=== PATIENT | female | born 1950 | race Caucasian/White ===

== ENCOUNTER 2018-08-09 17:42 | Observation (INO) ==
[2018-08-09] MEDS ORDERED: Ipratropium/Albuterol Neb 3 ML IH ONE (18:20)
--- NOTE | 2018-08-09 18:21 | Emergency Department Note ---
Disposition Clinical Impression: Pulmonary nodules/lesions, multiple, Pneumonitis, COPD exacerbation Disposition: Admitted As Inpatient Condition: Good Forms: ED Satisfaction Letter General Adult HPI - General Chief complaint: ED Upper Respiratory Infection Stated complaint: SOB Time Seen by Provider: 08/09/18 18:08 Source: patient Limitations: no limitations Nursing Notes Reviewed: Yes Vital Signs Reviewed: Yes - History of Present Illness HPI Narrative: Patient presented to the emergency room for evaluation of shortness of breath. Patient with a history of asthma but no official history of COPD the long-term smoking history. Symptoms started approximately 2 weeks ago. Patient was initially diagnosed with influenza. Was reportedly out of the time frame and started on an unknown antibiotic. Patient had mild initial improvement but has worsening cough with shortness of breath. White productive sputum. Patient states overall she has been feeling too bad to go outside and smoke. Pain Scale: 10 - Related Data Home Medications Medication Instructions Recorded Confirmed Albuterol Sulfate [Albuterol 2 puff IH Q4HR PRN 08/09/18 08/09/18 Inhaler] Doxycycline 100 mg PO BID 08/09/18 08/09/18 FLUoxetine HCl [Fluoxetine HCl] 40 mg PO QAM 08/09/18 08/09/18 Gabapentin [Neurontin] 400 mg PO 5XD PRN 08/09/18 08/09/18 Lansoprazole [Prevacid] 15 mg PO QAM 08/09/18 08/09/18 Naproxen [EC-Naprosyn] 500 mg PO BID 08/09/18 08/09/18 OxyCODONE/APAP 10/325 [Percocet 1 each PO Q6HR PRN 08/09/18 08/09/18 10/325 MG] Tizanidine HCl 2 mg PO Q8H PRN 08/09/18 08/09/18 hydroCHLOROthiazide 25 mg PO DAILY 08/09/18 08/09/18 [Hydrochlorothiazide] Allergies Allergy/AdvReac Type Severity Reaction Status Date / Time No Known Allergies Allergy Verified 11/17/17 19:01 Review of Systems: CONSTITUTIONAL: Subjective fever, chills, weakness and fatigue HEENT: Eyes: No visual changes. Ears, Nose, Throat: No hearing loss, difficulty talking or unable to swallow. SKIN: No rash or itching. CARDIOVASCULAR: No chest pain, chest pressure or chest discomfort. No palpitatio ns or edema. RESPIRATORY: Shortness of breath with cough and sputum production GASTROINTESTINAL: No anorexia, nausea, vomiting or diarrhea. No abdominal pain or blood. GENITOURINARY: No burning on urination or hematuria. NEUROLOGICAL: No headache, dizziness, syncope, paralysis, ataxia, numbness or tingling in the extremities. No change in bowel or bladder control. MUSCULOSKELETAL: No muscle pain, back pain, joint pain or stiffness. Past Medical History - Past Medical History Medical history: Reports: other Psychiatric history: Reports: no psych history - Social History Smoking Status: Current every day smoker Smokeless Tobacco Status: No Alcohol use: Reports: none Drug use: Reports: none Physical Exam General:, nontoxic, in mild respiratory distress Head: Normocephalic Atraumatic Eyes: PERRL, EOMI ENT: Airway patent, no stridor Neck: supple, no meningismus Chest: Diffuse wheezing bilaterally Cardiac: Regular rate and rhythm, no murmurs, rubs or gallops Abdomen: soft, nontender, nondistended; no guarding, rebound, or tenderness to percussion Musculoskeletal: Calves symmetric, nontender. Skin: No rash, normal skin tone. Neuro: Alert and Oriented to person, place, and time; No obvious focal deficit. 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 Patient is artery been on steroids and antibiotics and using inhaler at home. Patient will likely require admission. - Reevaluation(s) Reevaluation #1: Patient improved breathing treatments. Patient with numerous pulmonary nodules greatest 5 mm. Patient will need follow-up with repeat CT scan per guidelines Vital Signs Temperature 99.0 F 08/09/18 17:51 Pulse Rate 97 08/09/18 17:51 Respiratory Rate 20 08/09/18 17:51 Blood Pressure 134/79 08/09/18 17:51 O2 Sat by Pulse Oximetry 90 08/09/18 17:51 Temperature 99.0 F 08/09/18 17:51 Pulse Rate 94 08/09/18 18:41 Respiratory Rate 16 08/09/18 18:41 Blood Pressure 155/100 08/09/18 18:41 O2 Sat by Pulse Oximetry 97 08/09/18 18:41 Oxygen Delivery Oxygen Delivery Nasal Cannula,Aerosol Mask Medical Decision Making - Medical Records Medical records reviewed: Yes I reviewed the patient's medical records. - Lab Data Lab results reviewed: Yes I reviewed the patient's lab results. Result diagrams: 08/09/18 18:25 08/09/18 18:25 Lab Results 08/09/18 08/09/18 08/09/18 Range/Units 18:25 18:25 18:25 WBC 4.2 L (4.3-11.1) K/mcL RBC 4.62 (3.82-4.97) M/mcL Hgb 13.7 (11.5-15.4) g/dL Hct 41.0 (35.3-44.9) % MCV 88.7 (83.0-100.0) fL MCH 29.7 (28.0-33.3) pg MCHC 33.4 (31.6-35.5) g/dL RDW 13.8 (11.5-14.5) % Plt Count 108 L (140-400) K/mcL MPV 13.9 H (9.4-12.4) fL Immature Gran % 0.2 (0-4) % Seg Neutrophils % 70.3 % Lymphocytes % 16.1 % Monocytes % 13.2 % Eosinophils % 0.0 % Basophils % 0.2 % Neutrophils # 2.9 (1.6-8.9) K/mcL Lymphocytes # 0.7 (0.6-4.6) K/mcL Monocytes # 0.6 (0.0-1.3) K/mcL Eosinophils # 0.0 (0.0-0.6) K/mcL Basophils # 0.0 (0.0-0.2) K/mcL D-Dimer (0-500) ng/mLFEU Sodium 137 (136-145) mEq/L Potassium 3.4 L (3.5-5.1) mEq/L Chloride 98 (98-107) mEq/L Carbon Dioxide 30 H (23-29) mEq/L BUN 16 (8-23) mg/dL Creatinine 0.67 (0.60-1.20) mg/dL Est GFR ( Amer) > 60 (> 60) Est GFR (Non-Af Amer) > 60 (> 60) BUN/Creatinine Ratio 24 (6-26) Glucose 118 H (70-105) mg/dL Calculated Osmolality 286 (280-300) Lactic Acid 0.7 (0.5-2.2) mmol/L Calcium 8.6 (8.6-10.3) mg/dL Troponin I < 0.03 (< 0.04) ng/mL B-Natriuretic Peptide (Less than 100) pg/mL 08/09/18 08/09/18 Range/Units 18:25 18:25 WBC (4.3-11.1) K/mcL RBC (3.82-4.97) M/mcL Hgb (11.5-15.4) g/dL Hct (35.3-44.9) % MCV (83.0-100.0) fL MCH (28.0-33.3) pg MCHC (31.6-35.5) g/dL RDW (11.5-14.5) % Plt Count (140-400) K/mcL MPV (9.4-12.4) fL Immature Gran % (0-4) % Seg Neutrophils % % Lymphocytes % % Monocytes % % Eosinophils % % Basophils % % Neutrophils # (1.6-8.9) K/mcL Lymphocytes # (0.6-4.6) K/mcL Monocytes # (0.0-1.3) K/mcL Eosinophils # (0.0-0.6) K/mcL Basophils # (0.0-0.2) K/mcL D-Dimer 564 H (0-500) ng/mLFEU Sodium (136-145) mEq/L Potassium (3.5-5.1) mEq/L Chloride (98-107) mEq/L Carbon Dioxide (23-29) mEq/L BUN (8-23) mg/dL Creatinine (0.60-1.20) mg/dL Est GFR ( Amer) (> 60) Est GFR (Non-Af Amer) (> 60) BUN/Creatinine Ratio (6-26) Glucose (70-105) mg/dL Calculated Osmolality (280-300) Lactic Acid (0.5-2.2) mmol/L Calcium (8.6-10.3) mg/dL Troponin I (< 0.04) ng/mL B-Natriuretic Peptide 19 (Less than 100) pg/mL - Radiology Data Radiology results reviewed: Yes I reviewed the patient's radiology results. Chest X-Ray 08/09/18 18:11 IMPRESSION: No acute abnormality detected. D/ / Kamari Marti MD / Kamari Marti MD Interpreting Provider: Kamari Marti MD Chest CTA 08/09/18 19:21 IMPRESSION: No findings diagnostic of pulmonary embolus. Numerous small pulmonary nodules as described. The largest measures 5 mm in the right upper lobe with a small focus of central low density. This could be artifact or an area of developing cavitation or necrosis. Follow-up recommended. Multifocal ground-glass attenuation, age-indeterminate. This is likely due to sequela of underlying small airway disease include bronchiolitis or pneumonitis. Early changes of fibrosis not excluded. RECOMMENDATIONS: Fleischner Society guidelines for follow-up and management of incidentally detected pulmonary nodules: Multiple Solid Nodules: Nodule size less than 6 mm In a low-risk patient, no routine follow-up. In a high-risk patient, optional CT at 12 months. Nodule size equals 6-8 mm In a low-risk patient, CT at 3-6 months, then consider CT at 18-24 months. In a high-risk patient, CT at 3-6 months, then CT at 18-24 months. Nodule size greater than 8 mm In a low-risk patient, CT at 3-6 months, then consider CT at 18-24 months. In a high-risk patient, CT at 3-6 months, then CT at 18-24 months. - Low risk patients include individuals with minimal or absent history of smoking and other known risk factors. - High risk patients include individuals with a history or smoking or known risk factors. Radiology 2017 http://pubs.rsna.org/doi/full/10.1148/[email or web address] D/ / Sekou Mathew / Sekou Mathew Interpreting Provider: eSkou Mathew
[2018-08-09] MEDS ORDERED: methylPREDNISolone 125 MG/2 ML VIAL IVP ONE (18:31)
[2018-08-09 18:39] LABS: Basophils % 0.2 %; Hemoglobin 13.7 g/dL (11.5-15.4); Immature Granulocytes % 0.2 % (0-4); Lymphocytes # 0.7 K/mcL (0.6-4.6); Lymphocytes % 16.1 %; Mean Corpuscular HGB Conc 33.4 g/dL (31.6-35.5); Mean Corpuscular Hemoglobin 29.7 pg (28.0-33.3); Mean Corpuscular Volume 88.7 fL (83.0-100.0); Mean Platelet Volume 13.9 fL (9.4-12.4); Monocytes # 0.6 K/mcL (0.0-1.3); Monocytes % 13.2 %; Neutrophils # 2.9 K/mcL (1.6-8.9); Platelet Count 108 K/mcL (140-400); Red Blood Count 4.62 M/mcL (3.82-4.97); Red Cell Distribution Width 13.8 % (11.5-14.5); Segmented Neutrophils % 70.3 %
[2018-08-09 18:59] LABS: BUN/Creatinine Ratio 24 (6-26); Blood Urea Nitrogen 16 mg/dL (8-23); Calcium 8.6 mg/dL (8.6-10.3); Carbon Dioxide 30 mEq/L (23-29); Chloride 98 mEq/L (98-107); Glucose 118 mg/dL (70-105); Osmolality,Calculated 286 (280-300); Potassium 3.4 mEq/L (3.5-5.1); Sodium 137 mEq/L (136-145); Troponin I < 0.03 ng/mL (< 0.04); eGFR For Non-African Americans > 60 (> 60)
[2018-08-09] MEDS ORDERED: Isovue-370 500 ML BOTTLE IVP ONE (19:21)
[2018-08-09] MEDS ORDERED: Azithromycin 500 MG in D5% in Water 250 ML IVPB ONE (20:36)
[2018-08-09] MEDS ORDERED: cefTRIAXone 1,000 MG in Water for inj. (sterile) 20 ML 10 ML IVP ONE (20:36)
[2018-08-09] MEDS ORDERED: Naloxone 0.4 MG/ML INJ IVP PRN (21:08)
[2018-08-09] MEDS ORDERED: Albuterol 2.5 MG/3 ML NEBULIZER IH PRN (21:55)
[2018-08-09] MEDS ORDERED: tiZANidine 4 MG TABLET PO PRN (21:56)
[2018-08-09] MEDS ORDERED: *HR* OxyCODONE/APAP 10/325 TABLET PO PRN (21:56)
[2018-08-09] MEDS ORDERED: Ipratropium/Albuterol Neb 3 ML IH SCH (22:00)
--- NOTE | 2018-08-09 22:50 | Internal Med History&Physical ---
<CarlenevalerieboboShoshana Romario - Last Filed: 08/10/18 01:20> Date of Encounter: 08/10/18 Time of Encounter: 22:47 Internal Medicine - H&P: HPI Chief complaint: Shortness of breath Admitted From: Home Plans for Post Hospital Care: Home History of present illness: Ms. Adam is a 68 year old female presenting for shortness of breath. She has a past medical history of asthma, TIA 9 years ago, GERD, hypertension, cervical stenosis, depression, chronic lumbago, polio infection as child. She also has a significant smoking history, 26-rsam-lifh history, she began smoking at the age of 17. Patient states that 2 weeks ago she was around children who had upper respiratory infections, after that exposure she developed minimally productive cough, shortness of breath, fever, chills, weakness, lightheadedness, pharyngitis, sinus congestion. She presented to urgent care about 2 weeks ago and was diagnosed with bronchitis and sent home with prescriptions for prednisone, albuterol, and Z-Indra. Patient states that she tried to take the prednisone however it caused her to feel anxious and fidgety so she discontinued it. She then continued to have shortness of breath with cough and presented to the urgent care again 3 days ago where she had a negative chest x-ray, a negative influenza swab and was given a second Z-Indra and told to continue albuterol and prednisone. She did take this prednisone course and began to feel somewhat better however this morning when she awoke she continued to feel short of breath with worsening and more productive cough. She admits to fever, chills, lightheadedness, sinus congestion, pharyngitis, decreased appetite, productive cough, shortness of breath, chest tightness rated 7 out of 10 for the past 3 days it is worse with exertion and coughing however no radiation and denies calf pain. She also admits to chronic constipation and stress incontinence. She denies nausea, vomiting, vision or hearing changes, dysphagia, pleuritic chest pain, hemoptysis, palpitations, abdominal pain, diarrhea, hematochezia, melena, dysuria, hematuria, edema, easy bleeding, easy bruising, rashes, urticaria, or unintended weight loss. Past Med Surg Social Fam HX - Past Medical History Medical history: other Additional medical history: chronic back pain Psychiatric history: no psych history - Past Surgical History Additional surgical history: shoulder. neck - Social History Smoking Status: Current every day smoker Smokeless Tobacco Status: No Alcohol use: none Drug use: none Internal Medicine - H&P: Meds Albuterol Sulfate [Albuterol Inhaler] 2 puff IH Q4HR PRN 08/09/18 [History] FLUoxetine HCl [Fluoxetine HCl] 40 mg PO QAM 08/09/18 [History] Gabapentin [Neurontin] 400 mg PO 5XD PRN 08/09/18 [History] Naproxen [EC-Naprosyn] 500 mg PO BID 08/09/18 [History] OxyCODONE/APAP 10/325 [Percocet 10/325 MG] 1 each PO Q6HR PRN 08/09/18 [History] RX: Doxycycline 100 mg PO BID 08/09/18 [History] RX: Lansoprazole [Prevacid] 15 mg PO QAM 08/09/18 [History] RX: Tizanidine HCl 2 mg PO Q8H PRN 08/09/18 [History] RX: hydroCHLOROthiazide [Hydrochlorothiazide] 25 mg PO DAILY 08/09/18 [History] Allergy/AdvReac Type Severity Reaction Status Date / Time No Known Allergies Allergy Verified 11/17/17 19:01 All Systems PM: A 10-system review of systems was performed and is negative for pertinent findings except as documented above in the HPI. - Constitutional Constitutional: anorexia, chills, fatigue, fever(s), no falls, no weight loss - EENT Eyes: no blurry vision, no change in vision Ears: no decreased hearing, no tinnitus Nose, mouth and throat: nasal congestion, nasal discharge, neck pain, sinus pressure, sore throat, no dysphagia - Cardiovascular Cardiovascular ROS IM: chest pain, dyspnea, dyspnea on exertion, no diaphoresis, no edema, no orthopnea, no palpitations - Respiratory Respiratory: cough, wheezing, chest congestion, pain with cough, no hemoptysis - Gastrointestinal Gastrointestinal: constipation, heartburn, no abdominal pain, no change in stool character, no diarrhea, no dysphagia, no hematochezia, no melena, no nausea, no vomiting - Genitourinary Genitourinary: urinary incontinence, no abnormal vaginal bleeding, no difficulty urinating, no difficulty voiding, no dysuria, no hematuria, no urinary frequency, no urinary hesitancy Menstruation: post hysterectomy - Musculoskeletal Musculoskeletal ROS IM: back pain, neck pain, no arthralgias, no joint swelling, no myalgias - Integumentary Integumentary IM: no new lesions, no rash - Neurological Neurological ROS: weakness, no focal weakness, no headache(s), no loss of vision - Psychiatric Psychiatric: anxiety, depression - Hematologic/Lymphatic Hematologic/Lymphatic: no easy bleeding, no easy bruising - Allergic/Immunologic Allergic/Immunologic: no uticaria - Constitutional Vitals: Temp Pulse Resp BP Pulse Ox 99.0 F 80 16 155/100 96 08/09/18 17:51 08/09/18 22:14 08/09/18 18:41 08/09/18 18:41 08/09/18 22:14 Exam: Gen.: Vitals noted. Mild respiratory distress. AAOx3, resting comfortably in bed. HEENT: PERRL/EOMI, TMs normal, oropharynx clear, Normocephalic, atraumatic, MMM Neck: Supple. No adenopathy. Trachea midline. Mild baseline cervical midline tenderness Cardiac: RRR, no murmur, +S1/S2, No BLE edema, radial and dorsal pedis pulses 3+ and symmetrical, capillary refill less than 2 seconds. Pulmonary: Diffuse inspiratory and expiratory wheezes bilaterally, no rales or rhonchi, equal chest expansion, unlabored breathing Abdomen: soft, mild suprapubic pubic tenderness to palpation, BS noted, no guarding, no palpable HSM Back: Paraspinal musculature is mildly tender to palpation, no vertebral tenderness or step-offs. Skin: warm and dry, no visible lesions. MSK: ROM intact, no joint swelling noted, gait no assessed while in bed. Non tender calf or clubbing Neuro: A&Ox3, moves all extremities, no focal deficits, sensation intact, CN2-12 grossly intact Psych: Appropriate mood and behavior, AOx3 Internal Med - H&P Results - Labs CBC & Chem 7: 08/09/18 18:25 08/09/18 18:25 Labs: Short CBC 08/09/18 Range/Units 18:25 WBC 4.2 L (4.3-11.1) K/mcL Hgb 13.7 (11.5-15.4) g/dL Hct 41.0 (35.3-44.9) % Plt Count 108 L (140-400) K/mcL Neutrophils # 2.9 (1.6-8.9) K/mcL BMP 08/09/18 18:25 Sodium 137 Potassium 3.4 L Chloride 98 Carbon Dioxide 30 H BUN 16 Creatinine 0.67 Glucose 118 H Calcium 8.6 Cardiac Enzymes 08/09/18 Range/Units 18:25 Troponin I < 0.03 (< 0.04) ng/mL - Impressions ITS Impressions Chest X-Ray 08/09/18 18:11 IMPRESSION: No acute abnormality detected. D/ / Kamari Marti MD / Kamari Marti MD Interpreting Provider: Kamari Marti MD Chest CTA 08/09/18 19:21 IMPRESSION: No findings diagnostic of pulmonary embolus. Numerous small pulmonary nodules as described. The largest measures 5 mm in the right upper lobe with a small focus of central low density. This could be artifact or an area of developing cavitation or necrosis. Follow-up recommended. Multifocal ground-glass attenuation, age-indeterminate. This is likely due to sequela of underlying small airway disease include bronchiolitis or pneumonitis. Early changes of fibrosis not excluded. RECOMMENDATIONS: Fleischner Society guidelines for follow-up and management of incidentally detected pulmonary nodules: Multiple Solid Nodules: Nodule size less than 6 mm In a low-risk patient, no routine follow-up. In a high-risk patient, optional CT at 12 months. Nodule size equals 6-8 mm In a low-risk patient, CT at 3-6 months, then consider CT at 18-24 months. In a high-risk patient, CT at 3-6 months, then CT at 18-24 months. Nodule size greater than 8 mm In a low-risk patient, CT at 3-6 months, then consider CT at 18-24 months. In a high-risk patient, CT at 3-6 months, then CT at 18-24 months. - Low risk patients include individuals with minimal or absent history of smoking and other known risk factors. - High risk patients include individuals with a history or smoking or known risk factors. Radiology 2017 http://pubs.rsna.org/doi/full/10.1148/radiol.2250084443 D/ / Sekou Mathew / Sekou Mathew Interpreting Provider: Sekou Mathew - Assessment and Plan (1) COPD exacerbation Current Visit: Yes Status: Acute Assessment and plan: Suspected COPD exacerbation secondary to viral etiology Patient presents with shortness of breath for 2 weeks duration as well as minimally productive cough Patient has significant smoking history, 25 pack years, however she has not had formal pulmonary function testing Patient is status post 2 courses of azithromycin outpatient Influenza swab is negative 2 Chest x-ray shows no acute cardiopulmonary abnormality CTA chest shows no pulmonary embolus however there are numerous small pulmonary nodules present as well as groundglass attenuation Patient has no leukocytosis, lactic acid within normal limits, troponin within normal limits, BNP within normal limits DuoNeb every 4 Albuterol every 2 when necessary Guaifenesin twice a day Methylprednisolone 40 mg IV, patient states that she has behavioral changes with PO prednisone Patient would benefit from pulmonary follow-up outpatient for spirometry and pulmonary function testing Continue supplemental oxygen as needed (2) Pulmonary nodules/lesions, multiple Current Visit: Yes Status: Acute Assessment and plan: CTA chest showed multiple pulmonary nodules, the largest measuring 5 mm. Patient will need outpatient follow-up and repeat CT scan in next 12 months according to Fleischner guidelines. (3) Thrombocytopenia Current Visit: Yes Status: Acute Assessment and plan: Mild thrombocytopenia, platelets 108 Currently asymptomatic, no bleeding occurring Suspect that these are secondary to viral infection Continue to monitor (4) Hypokalemia Current Visit: Yes Status: Acute Assessment and plan: Mild hypokalemia on labs, currently 3.4 We will replete with potassium chloride Continue to monitor (5) Stress incontinence in female Current Visit: Yes Status: Acute Assessment and plan: Patient has a history of stress incontinence Suprapubic tenderness present on exam UA is negative for urinary tract infection Glucosuria is present (6) GERD (gastroesophageal reflux disease) Current Visit: Yes Status: Chronic Assessment and plan: Patient has a history of GERD Continue home medication lansoprazole Qualifiers: Esophagitis presence: esophagitis presence not specified Qualified Code(s): K21.9 - Gastro-esophageal reflux disease without esophagitis (7) Cervical spinal stenosis Current Visit: Yes Status: Acute Assessment and plan: Patient has a history of cervical spinal stenosis status post C3/C4 fusion Continue home pain medications for this problem, gabapentin, Percocet, naproxen, tizanidine (8) Hypertension Current Visit: Yes Status: Chronic Assessment and plan: Patient has a history of hypertension Continue hydrochlorothiazide Continue to monitor Qualifiers: Hypertension type: essential hypertension Qualified Code(s): I10 - Essential (primary) hypertension (9) Depression Current Visit: Yes Status: Chronic Assessment and plan: Patient has a history of major depression disorder Continue home medication fluoxetine Qualifiers: Depression Type: major depressive disorder Major depression recurrence: unspecified whether recurrent Major depression episode severity: unspecified Qualified Code(s): F32.9 - Major depressive disorder, single episode, unspecified (10) Tobacco abuse Current Visit: Yes Status: Acute Assessment and plan: Patient has significant history of tobacco abuse Has smoked 1/2-1 pack per day for the past 51 years 14 mg transdermal nicotine patch Continue to discuss smoking cessation (11) DVT prophylaxis Current Visit: Yes Status: Acute Assessment and plan: Subcutaneous heparin - Time Spent With Patient Total time spent is greater than 50% in coordination of care (as documented) at patient's floor/unit and/or counseling patient: 25 - 35 minutes <Kristie Grant - Last Filed: 08/10/18 02:07> Date of Encounter: 08/09/18 All Systems PM: A 10-system review of systems was performed and is negative for pertinent findings except as documented above in the HPI. - Constitutional Vitals: Temp Pulse Resp BP Pulse Ox 97.9 F 77 17 129/74 95 08/09/18 22:52 08/09/18 22:52 08/09/18 22:52 08/09/18 22:52 08/09/18 22:52 Internal Med - H&P Results - Labs CBC & Chem 7: 08/09/18 18:25 08/09/18 18:25 Labs: Short CBC 08/09/18 Range/Units 18:25 WBC 4.2 L (4.3-11.1) K/mcL Hgb 13.7 (11.5-15.4) g/dL Hct 41.0 (35.3-44.9) % Plt Count 108 L (140-400) K/mcL Neutrophils # 2.9 (1.6-8.9) K/mcL BMP 08/09/18 18:25 Sodium 137 Potassium 3.4 L Chloride 98 Carbon Dioxide 30 H BUN 16 Creatinine 0.67 Glucose 118 H Calcium 8.6 Cardiac Enzymes 08/09/18 Range/Units 18:25 Troponin I < 0.03 (< 0.04) ng/mL - Impressions ITS Impressions Chest X-Ray 08/09/18 18:11 IMPRESSION: No acute abnormality detected. D/ / Kamari Marti MD / Kamari Marti MD Interpreting Provider: Kamari Marti MD Chest CTA 08/09/18 19:21 IMPRESSION: No findings diagnostic of pulmonary embolus. Numerous small pulmonary nodules as described. The largest measures 5 mm in the right upper lobe with a small focus of central low density. This could be artifact or an area of developing cavitation or necrosis. Follow-up recommended. Multifocal ground-glass attenuation, age-indeterminate. This is likely due to sequela of underlying small airway disease include bronchiolitis or pneumonitis. Early changes of fibrosis not excluded. RECOMMENDATIONS: Fleischner Society guidelines for follow-up and management of incidentally detected pulmonary nodules: Multiple Solid Nodules: Nodule size less than 6 mm In a low-risk patient, no routine follow-up. In a high-risk patient, optional CT at 12 months. Nodule size equals 6-8 mm In a low-risk patient, CT at 3-6 months, then consider CT at 18-24 months. In a high-risk patient, CT at 3-6 months, then CT at 18-24 months. Nodule size greater than 8 mm In a low-risk patient, CT at 3-6 months, then consider CT at 18-24 months. In a high-risk patient, CT at 3-6 months, then CT at 18-24 months. - Low risk patients include individuals with minimal or absent history of smoking and other known risk factors. - High risk patients include individuals with a history or smoking or known risk factors. Radiology 2017 http://pubs.rsna.org/doi/full/10.1148/radiol.1337188038 D/ / Sekou Mathew / Sekou Mathew Interpreting Provider: Sekou Mathew - Time Spent With Patient Total time spent is greater than 50% in coordination of care (as documented) at patient's floor/unit and/or counseling patient: - Attending Attestation I performed a history and physical exam of the patient on 08/09/18 and discussed management with the resident. I reviewed the resident's note and agree with the documented findings and plan of care. Ameena Adam is a 68 year old woman who reports no prior medical history, active smoker who presents complaining of 2 weeks of increasing shortness of breath, wheezing and poorly productive cough. She was seen at the beginning of her symptoms at urgent care when she also had headaches, mylagias, chills and malaise. She was reportedly diagnosed with influenza but told that she was out of the time window for treatment and therefore Rx steroids and oral abx. She reports no improvement with this. In the ER today she was notably uncomfortable. Chest imaging as reviewed by me shows some mild ground glass developments in the lung periphery but no focal consolidations. Physical exam notable for anterior and posterior expiratory wheezes on her chest. Labs reviewed and grossly unremarkable. Currently on supplemental oxygen via nasal cannula. Will admit for symptomatic relief measures, nebulizers, steroids, anti-tussive agents and analgesics. Suspect this is all viral in etiology. No indication for antibiotics at this point especially seeing as she has taken 2 courses of this only recently. Likely has undiagnosed COPD and she will benefit from outpatient pulmonary evaluation and spirometry. Room air oxygenation evaluation should be performed prior to discharge. ANUSHA MADRID.
[2018-08-09] MEDS: *HR* Heparin 5,000 UNIT/ML VIAL SQ SCH (23:27)
[2018-08-09] MEDS: Ipratropium/Albuterol Neb 3 ML IH SCH (23:58)
[2018-08-10] MEDS ORDERED: Gabapentin 400 MG CAPSULE PO PRN
[2018-08-10 00:48] LABS: Bilirubin,Urine Negative (Negative); Blood,Urine Negative (Negative); Clarity,Urine Clear (Clear); Color,Urine Yellow (Yellow); Glucose,Urine (UA) 250 mg/dL (Normal); Ketones,Urine Negative (Negative); Leukocyte Esterase,Urine Negative (Negative); Nitrite,Urine Negative (Negative); Protein,Urine Negative (Neg-Trace); Specific Gravity,Urine > 1.030 (1.010-1.025); Urobilinogen,Urine Normal (Normal)
[2018-08-10] MEDS: Nicotine 14 MG PATCH.TD24 TD SCH (02:36)
[2018-08-10] MEDS: Ipratropium/Albuterol Neb 3 ML IH SCH ×6 (03:48→23:37)
[2018-08-10] MEDS: *HR* Heparin 5,000 UNIT/ML VIAL SQ SCH ×2 (05:00→17:23)
[2018-08-10 07:17] LABS: Hematocrit 39.9 % (35.3-44.9); Hemoglobin 13.1 g/dL (11.5-15.4); Immature Granulocytes % 0.5 % (0-4); Lymphocytes # 0.3 K/mcL (0.6-4.6); Lymphocytes % 13.9 %; Mean Corpuscular HGB Conc 32.8 g/dL (31.6-35.5); Mean Corpuscular Hemoglobin 29.4 pg (28.0-33.3); Mean Corpuscular Volume 89.7 fL (83.0-100.0); Mean Platelet Volume 13.8 fL (9.4-12.4); Monocytes # 0.1 K/mcL (0.0-1.3); Monocytes % 3.7 %; Neutrophils # 1.8 K/mcL (1.6-8.9); Platelet Count 112 K/mcL (140-400); Red Blood Count 4.45 M/mcL (3.82-4.97); Red Cell Distribution Width 13.7 % (11.5-14.5); Segmented Neutrophils % 81.9 %
[2018-08-10 07:36] LABS: BUN/Creatinine Ratio 19 (6-26); Blood Urea Nitrogen 12 mg/dL (8-23); Calcium 8.8 mg/dL (8.6-10.3); Carbon Dioxide 28 mEq/L (23-29); Chloride 101 mEq/L (98-107); Glucose 222 mg/dL (70-105); Osmolality,Calculated 291 (280-300); Potassium 3.8 mEq/L (3.5-5.1); Sodium 137 mEq/L (136-145); eGFR For Non-African Americans > 60 (> 60)
--- NOTE | 2018-08-10 07:40 | Internal Med Progress Note ---
<Phillip Solares - Last Filed: 08/10/18 11:21> Hospitalist Progress Note - Encounter Date of Encounter: 08/10/18 Time of Encounter: 11:21 - Subjective Interval History: Patient reports that her shortness of breath has improved. Her wheezing has improved as well. She does have some productive cough. She denies chest pain, abdominal pain, nausea, vomiting, lower extremity pain. She does report being constipated. - Exam Vitals: Temp Pulse Resp BP Pulse Ox 97.6 F 69 18 132/73 94 08/10/18 06:59 08/10/18 06:59 08/10/18 06:59 08/10/18 06:59 08/10/18 06:59 Exam: GGeneral: pleasant, without distress HEENT: Head atraumatic, normocephalic, EOMI, PERRL, absent ear discharge or trauma, Moist Mucous Membranes, uvula midline Neck: nontender to palpation, absent lymphadenopathy, Cardiovascualr: Regular rate and rhythm with no murmur, absent gallops or rubs, absent pedal edema, radial pulses 2 out of 4 Lungs: Bilateral expiratory wheezing, diminished breath sounds throughout not in respiratory distress Abdomen: Soft nontender, nondistended positive bowel sounds, absent hepatomegaly Skin: warm and dry, absent rash, absent open wounds and nodules MSK: absent clubbing, cyanosis, joints without swelling Neuro: Cranial nerves II through XII intact, UE and LE sensation equal bilaterally, UE and LEstrength 5/5, alert oriented 3, Psych: good insight and judgment, - Assessment and Plan (1) Acute respiratory failure with hypoxia Current Visit: Yes Status: Acute Assessment and Plan: Secondary to COPD exacerbation in the setting of asthma and tobacco use. Chest x-ray shows chronic interstitial opacities. Patient failed outpatient therapy twice Currently she require supplemental oxygen which she is not on at home. We will titrate to greater than 88% O2 saturation. Continue DuoNeb's, IV steroids. (2) COPD exacerbation Current Visit: Yes Status: Acute Assessment and Plan: Plan as above. Patient has not been officially diagnosed with COPD. Will benefit from outpatient PFTs. (3) Depression Current Visit: Yes Status: Chronic Assessment and Plan: Continue home medications. (4) DVT prophylaxis Current Visit: Yes Status: Acute Assessment and Plan: Heparin subcutaneous. (5) GERD (gastroesophageal reflux disease) Current Visit: Yes Status: Chronic Assessment and Plan: Continue omeprazole. Controlled. (6) Hypertension Current Visit: Yes Status: Chronic Assessment and Plan: Controlled. Continue hydrochlorothiazide. (7) Hypokalemia Current Visit: Yes Status: Resolved (8) Pulmonary nodules/lesions, multiple Current Visit: Yes Status: Acute Assessment and Plan: CTA showed numerous small pulmonary nodules the largest measuring 5 mm in the right upper lobe and small focus of central low density. Recommend outpatient follow-up in [address] scan. (9) Thrombocytopenia Current Visit: Yes Status: Acute Assessment and Plan: Unclear etiology of thrombocytopenia. Patient also has leukopenia. Hemoglobin within normal limits Plan: Patient needs to be evaluated for thrombocytopenia outpatient (10) Tobacco abuse Current Visit: Yes Status: Acute Assessment and Plan: Patient educated on tobacco cessation. - Time Spent with Patient Total time spent is greater than 50% in coordination of care (as documented) at patient's floor/unit and/or counseling patient: Internal Medicine: Result - Labs CBC & Chem 7: 08/10/18 07:05 08/10/18 07:05 Labs: Short CBC 08/09/18 08/10/18 Range/Units 18:25 07:05 WBC 4.2 L 2.2 L (4.3-11.1) K/mcL Hgb 13.7 13.1 (11.5-15.4) g/dL Hct 41.0 39.9 (35.3-44.9) % Plt Count 108 L 112 L (140-400) K/mcL Neutrophils # 2.9 1.8 (1.6-8.9) K/mcL BMP 08/09/18 08/10/18 18:25 07:05 Sodium 137 137 Potassium 3.4 L 3.8 Chloride 98 101 Carbon Dioxide 30 H 28 BUN 16 12 Creatinine 0.67 0.64 Glucose 118 H 222 H Calcium 8.6 8.8 Cardiac Enzymes 08/09/18 Range/Units 18:25 Troponin I < 0.03 (< 0.04) ng/mL Urine 08/10/18 Range/Units 00:15 Urine Color Yellow (Yellow) Urine Clarity Clear (Clear) Urine pH 6.0 (5.0-8.0) pH Units Ur Specific [place] > 1.030 H (1.010-1.025) Urine Protein Negative (Neg-Trace) mg/dL Urine Glucose (UA) 250 H (Normal) mg/dL - ABG Interpretation ABG results: PT/INR, D-dimer D-Dimer 564 ng/mLFEU (0-500) H 08/09/18 18:25 - Impressions Impressions Chest X-Ray 08/09/18 18:11 IMPRESSION: No acute abnormality detected. D/ / Kamari Marti MD / Kamari Marti MD Interpreting Provider: Kamari Marti MD Chest CTA 08/09/18 19:21 IMPRESSION: No findings diagnostic of pulmonary embolus. Numerous small pulmonary nodules as described. The largest measures 5 mm in the right upper lobe with a small focus of central low density. This could be artifact or an area of developing cavitation or necrosis. Follow-up recommended. Multifocal ground-glass attenuation, age-indeterminate. This is likely due to sequela of underlying small airway disease include bronchiolitis or pneumonitis. Early changes of fibrosis not excluded. RECOMMENDATIONS: Fleischner Society guidelines for follow-up and management of incidentally detected pulmonary nodules: Multiple Solid Nodules: Nodule size less than 6 mm In a low-risk patient, no routine follow-up. In a high-risk patient, optional CT at 12 months. Nodule size equals 6-8 mm In a low-risk patient, CT at 3-6 months, then consider CT at 18-24 months. In a high-risk patient, CT at 3-6 months, then CT at 18-24 months. Nodule size greater than 8 mm In a low-risk patient, CT at 3-6 months, then consider CT at 18-24 months. In a high-risk patient, CT at 3-6 months, then CT at 18-24 months. - Low risk patients include individuals with minimal or absent history of smoking and other known risk factors. - High risk patients include individuals with a history or smoking or known risk factors. Radiology 2017 http://pubs.rsna.org/doi/full/10.1148/radiol.1664088912 D/ / Sekou Mathew / Sekou Mathew Interpreting Provider: Sekou Mathew Consult Discharge Plan - Plan Referrals: Yaneli Quijano, [employer] SALESPERSON [Primary Care Provider] - <Matt Duran - Last Filed: 08/10/18 13:35> Hospitalist Progress Note - Encounter Date of Encounter: 08/10/18 - Exam Vitals: Temp Pulse Resp BP Pulse Ox 98.2 F 75 18 115/67 94 08/10/18 11:30 08/10/18 11:30 08/10/18 11:30 08/10/18 11:30 08/10/18 11:30 - Time Spent with Patient Total time spent is greater than 50% in coordination of care (as documented) at patient's floor/unit and/or counseling patient: Internal Medicine: Result - Labs CBC & Chem 7: 08/10/18 07:05 08/10/18 07:05 Labs: Short CBC 08/09/18 08/10/18 Range/Units 18:25 07:05 WBC 4.2 L 2.2 L (4.3-11.1) K/mcL Hgb 13.7 13.1 (11.5-15.4) g/dL Hct 41.0 39.9 (35.3-44.9) % Plt Count 108 L 112 L (140-400) K/mcL Neutrophils # 2.9 1.8 (1.6-8.9) K/mcL BMP 08/09/18 08/10/18 18:25 07:05 Sodium 137 137 Potassium 3.4 L 3.8 Chloride 98 101 Carbon Dioxide 30 H 28 BUN 16 12 Creatinine 0.67 0.64 Glucose 118 H 222 H Calcium 8.6 8.8 Cardiac Enzymes 08/09/18 Range/Units 18:25 Troponin I < 0.03 (< 0.04) ng/mL Urine 08/10/18 Range/Units 00:15 Urine Color Yellow (Yellow) Urine Clarity Clear (Clear) Urine pH 6.0 (5.0-8.0) pH Units Ur Specific [place] > 1.030 H (1.010-1.025) Urine Protein Negative (Neg-Trace) mg/dL Urine Glucose (UA) 250 H (Normal) mg/dL - ABG Interpretation ABG results: PT/INR, D-dimer D-Dimer 564 ng/mLFEU (0-500) H 08/09/18 18:25 - Impressions Impressions Chest X-Ray 08/09/18 18:11 IMPRESSION: No acute abnormality detected. D/ / Kamari Marti MD / Kamari Marti MD Interpreting Provider: Kamari Marti MD Chest CTA 08/09/18 19:21 IMPRESSION: No findings diagnostic of pulmonary embolus. Numerous small pulmonary nodules as described. The largest measures 5 mm in the right upper lobe with a small focus of central low density. This could be artifact or an area of developing cavitation or necrosis. Follow-up recommended. Multifocal ground-glass attenuation, age-indeterminate. This is likely due to sequela of underlying small airway disease include bronchiolitis or pneumonitis. Early changes of fibrosis not excluded. RECOMMENDATIONS: Fleischner Society guidelines for follow-up and management of incidentally detected pulmonary nodules: Multiple Solid Nodules: Nodule size less than 6 mm In a low-risk patient, no routine follow-up. In a high-risk patient, optional CT at 12 months. Nodule size equals 6-8 mm In a low-risk patient, CT at 3-6 months, then consider CT at 18-24 months. In a high-risk patient, CT at 3-6 months, then CT at 18-24 months. Nodule size greater than 8 mm In a low-risk patient, CT at 3-6 months, then consider CT at 18-24 months. In a high-risk patient, CT at 3-6 months, then CT at 18-24 months. - Low risk patients include individuals with minimal or absent history of smoking and other known risk factors. - High risk patients include individuals with a history or smoking or known risk factors. Radiology 2017 http://pubs.rsna.org/doi/full/10.1148/radiol.6126091257 D/ / Sekou Mathew / Sekou Mathew Interpreting Provider: Sekou Mathew - Attending Attestation I have seen and independently assessed this patient and I agree with plan as documented Plan Acute hypoxic resp failure 2/2 to acute COPD exacerbation. Continue nebs, steroids and antibiotics. Wean off IV steroids as tolerated <Phillip Solares - Last Filed: 08/10/18 11:21> (3) Depression Qualifiers: Depression Type: major depressive disorder Major depression recurrence: unspecified whether recurrent Major depression episode severity: unspecified Qualified Code(s): F32.9 - Major depressive disorder, single episode, unspecified (5) GERD (gastroesophageal reflux disease) Qualifiers: Esophagitis presence: esophagitis presence not specified Qualified Code(s): K21.9 - Gastro-esophageal reflux disease without esophagitis (6) Hypertension Qualifiers: Hypertension type: essential hypertension Qualified Code(s): I10 - Essential (primary) hypertension
[2018-08-10] MEDS: FLUoxetine 20 MG CAPSULE PO SCH (08:31)
[2018-08-10] MEDS: hydroCHLOROthiazide 25 MG TABLET PO SCH (08:31)
[2018-08-10] MEDS ORDERED: MethylPREDNISolone 40 MG/ML VIAL IVP SCH (09:00)
[2018-08-10] MEDS ORDERED: Azithromycin 500 MG in D5% in Water 250 ML IVPB SCH (11:00)
[2018-08-10] MEDS: Budesonide/Formoterol 160/4.5 1 PUFF INH IH SCH ×2 (11:34→19:33)
[2018-08-10] MEDS: MethylPREDNISolone 40 MG/ML VIAL IVP SCH (17:23)
[2018-08-11] MEDS: MethylPREDNISolone 40 MG/ML VIAL IVP SCH ×2 (00:01→07:26)
[2018-08-11] MEDS: Nicotine 14 MG PATCH.TD24 TD SCH (00:02)
[2018-08-11] MEDS: Ipratropium/Albuterol Neb 3 ML IH SCH ×3 (03:28→11:08)
[2018-08-11 04:48] LABS: Hematocrit 38.4 % (35.3-44.9); Hemoglobin 12.7 g/dL (11.5-15.4); Immature Granulocytes % 0.3 % (0-4); Lymphocytes # 0.7 K/mcL (0.6-4.6); Lymphocytes % 9.2 %; Mean Corpuscular HGB Conc 33.1 g/dL (31.6-35.5); Mean Corpuscular Hemoglobin 29.7 pg (28.0-33.3); Mean Corpuscular Volume 89.7 fL (83.0-100.0); Mean Platelet Volume 14.2 fL (9.4-12.4); Monocytes # 0.4 K/mcL (0.0-1.3); Monocytes % 5.3 %; Neutrophils # 6.7 K/mcL (1.6-8.9); Platelet Count 114 K/mcL (140-400); Red Blood Count 4.28 M/mcL (3.82-4.97); Red Cell Distribution Width 13.9 % (11.5-14.5); Segmented Neutrophils % 85.2 %
[2018-08-11 05:04] LABS: BUN/Creatinine Ratio 20 (6-26); Blood Urea Nitrogen 14 mg/dL (8-23); Calcium 8.8 mg/dL (8.6-10.3); Carbon Dioxide 27 mEq/L (23-29); Chloride 98 mEq/L (98-107); Glucose 227 mg/dL (70-105); Osmolality,Calculated 292 (280-300); Potassium 3.1 mEq/L (3.5-5.1); Sodium 137 mEq/L (136-145); eGFR For Non-African Americans > 60 (> 60)
[2018-08-11] MEDS: *HR* Heparin 5,000 UNIT/ML VIAL SQ SCH (05:52)
[2018-08-11] MEDS: Budesonide/Formoterol 160/4.5 1 PUFF INH IH SCH (07:22)
[2018-08-11] MEDS: FLUoxetine 20 MG CAPSULE PO SCH (07:25)
[2018-08-11] MEDS: hydroCHLOROthiazide 25 MG TABLET PO SCH (07:26)
[2018-08-11] MEDS ORDERED: Azithromycin 250 MG TABLET PO SCH (09:00)
--- NOTE | 2018-08-11 10:36 | Discharge Summary ---
<Phillip Solares - Last Filed: 08/11/18 10:34> - NOTES TO OUTPATIENT PROVIDER Notes to Outpatient Provider: Admitted for acute hypoxic respiratory failure secondary to suspected COPD exacerbation. Will benefit from from outpatient PFTs. Will be discharged on steroid taper, Symbicort inhaler, one daily Zithromax. Underwent CT chest which showed multiple pulmonary nodules less than 5 mm. Patient will need a follow-up CT of the chest in 12 months. Patient also has thrombocytopenia and leukopenia of unclear etiology was stable in the hospital will need to be worked up in the outpatient setting. Orders not resulted at time of discharge: Pending orders 08/09/18 18:11 ECG 12 lead ECG [ECG] Stat 08/12/18 04:00 Basic Metabolic Panel AM 0400 Complete Blood Count [HEME] AM 0400 Date of Encounter: 08/11/18 Time of Encounter: 10:34 - Discharge Diagnosis (1) Acute respiratory failure with hypoxia Priority: Primary Status: Resolved (2) COPD exacerbation Priority: Secondary Status: Resolved (3) Depression Priority: Secondary Status: Chronic Qualifiers: Depression Type: major depressive disorder Major depression recurrence: unspecified whether recurrent Major depression episode severity: unspecified Qualified Code(s): F32.9 - Major depressive disorder, single episode, unspecified (4) DVT prophylaxis Priority: Secondary Status: Acute (5) GERD (gastroesophageal reflux disease) Priority: Secondary Status: Chronic Qualifiers: Esophagitis presence: esophagitis presence not specified Qualified Code(s): K21.9 - Gastro-esophageal reflux disease without esophagitis (6) Hypertension Priority: Secondary Status: Chronic Qualifiers: Hypertension type: essential hypertension Qualified Code(s): I10 - Essential (primary) hypertension (7) Hypokalemia Priority: Secondary Status: Resolved (8) Pulmonary nodules/lesions, multiple Priority: Secondary Status: Acute (9) Thrombocytopenia Priority: Secondary Status: Acute (10) Tobacco abuse Priority: Secondary Status: Acute Hospital course: Ms. Adam is a 68 year old female admitted for acute respiratory failure with hypoxia for COPD exacerbation. Patient was started on antibiotics, nebulizer treatments, Symbicort, IV steroids. She initially required 3 L oxygen but this was weaned down. Patient did not qualify for oxygen during a 6 minute walk test. Patient was educated on smoking cessation. She was also educated on finishing her steroid taper as prescribed. She will follow up with her PCP and will need a PFT. She also had a CT chest which showed multiple pulmonary nodules less than 5 mm and will need a follow-up CT scan in 12 months. Patient also had leukopenia and trauma cytopenia. Her leukopenia has resolved but her platelets remain 114. This will need to be followed up by PCP as well. Discharge discussed with: patient - Time Spent with Patient Total time spent providing and/or coordinating discharge services: - Discharge Medications Prescriptions: New Azithromycin [Zithromax] 500 mg PO DAILY #1 tablet Budesonide/Formoterol 160/4.5 [Symbicort 160/4.5] 2 puff IH BIDR #1 inh predniSONE [PredniSONE] See Taper PO TAPER #10 tablet Continue Tizanidine HCl 2 mg PO Q8H PRN PRN Reason: Muscle Spasm Lansoprazole [Prevacid] 15 mg PO QAM hydroCHLOROthiazide [Hydrochlorothiazide] 25 mg PO DAILY Naproxen [EC-Naprosyn] 500 mg PO BID FLUoxetine HCl [Fluoxetine HCl] 40 mg PO QAM OxyCODONE/APAP 10/325 [Percocet 10/325 MG] 1 each PO Q6HR PRN PRN Reason: Pain Gabapentin [Neurontin] 400 mg PO 5XD PRN PRN Reason: Pain Doxycycline 100 mg PO BID Albuterol Sulfate [Albuterol Inhaler] 2 puff IH Q4HR PRN PRN Reason: sob/wheezing Home Medications: Albuterol Sulfate [Albuterol Inhaler] 2 puff IH Q4HR PRN 08/09/18 [History] Doxycycline 100 mg PO BID 08/09/18 [History] FLUoxetine HCl [Fluoxetine HCl] 40 mg PO QAM 08/09/18 [History] Gabapentin [Neurontin] 400 mg PO 5XD PRN 08/09/18 [History] Lansoprazole [Prevacid] 15 mg PO QAM 08/09/18 [History] Naproxen [EC-Naprosyn] 500 mg PO BID 08/09/18 [History] OxyCODONE/APAP 10/325 [Percocet 10/325 MG] 1 each PO Q6HR PRN 08/09/18 [History] Tizanidine HCl 2 mg PO Q8H PRN 08/09/18 [History] hydroCHLOROthiazide [Hydrochlorothiazide] 25 mg PO DAILY 08/09/18 [History] Azithromycin [Zithromax] 500 mg PO DAILY #1 tablet 08/11/18 [Rx] Budesonide/Formoterol 160/4.5 [Symbicort 160/4.5] 2 puff IH BIDR #1 inh 08/11/18 [Rx] predniSONE [PredniSONE] See Taper PO TAPER #10 tablet 08/11/18 [Rx] Allergies/Adverse Reactions: Allergy/AdvReac Type Severity Reaction Status Date / Time No Known Allergies Allergy Verified 11/17/17 19:01 Date of admission: 08/09/18 21:31 Primary care physician: Yaneli Quijano CNP - Constitutional Vitals: Temp Pulse Resp BP Pulse Ox 99.1 F 85 18 122/69 91 08/11/18 06:59 08/11/18 06:59 08/11/18 07:25 08/11/18 06:59 08/11/18 07:25 Exam: GGeneral: pleasant, without distress HEENT: Head atraumatic, normocephalic, EOMI, PERRL, absent ear discharge or trauma, Moist Mucous Membranes, uvula midline Neck: nontender to palpation, absent lymphadenopathy, Cardiovascualr: Regular rate and rhythm with no murmur, absent gallops or rubs, absent pedal edema, radial pulses 2 out of 4 Lungs: Clear bilaterally, diminished breath sounds throughout not in respiratory distress Abdomen: Soft nontender, nondistended positive bowel sounds, absent hepatomegaly Skin: warm and dry, absent rash, absent open wounds and nodules MSK: absent clubbing, cyanosis, joints without swelling Neuro: Cranial nerves II through XII intact, UE and LE sensation equal bilaterally, UE and LEstrength 5/5, alert oriented 3, Psych: good insight and judgment, - Patient Status Disposition: Home, Self-Care Condition: Good Functional capacity at discharge: independent ambulation Overall status at discharge: patient is progressing back to baseline - Discharge Instructions Instructions: Prednisone (By mouth), Azithromycin (By mouth) Follow Up With: Yaneli Quijano CNP [Primary Care Provider] - 08/19/18 2:30 pm (Please follow up as schedule...) - Diet and Activity Activity: increase activity as tolerated Diet: low fat, low cholesterol, low salt diet <Matt Duran - Last Filed: 08/11/18 11:36> Orders not resulted at time of discharge: Pending orders 08/12/18 04:00 Basic Metabolic Panel AM 0400 Complete Blood Count [HEME] AM 0400 Date of Encounter: 08/11/18 Hospital course: Ms. Adam is a 68 year old female - Time Spent with Patient Total time spent providing and/or coordinating discharge services: Date of admission: 08/09/18 21:31 Primary care physician: Yaneli Quijano CNP Consults: 08/11/18 11:14 Consult to Nurse Navigator [CONS] Routine Comment: copd - Constitutional Vitals: Temp Pulse Resp BP Pulse Ox 98.8 F 86 18 122/68 92 08/11/18 11:02 08/11/18 11:02 08/11/18 11:16 08/11/18 11:02 08/11/18 11:16 - Attending Attestation I have seen and independently assessed this patient and I agree with plan as documented Exam Gen. NAD CVS. S1 S2 WNL Resp. CTAB Plan Acute hypoxic resp failure 2/2 to acute COPD exacerbation. Continue nebs, steroids and antibiotics. Wean off IV steroids as tolerated. Discharge on prednisone taper
[2018-08-11 11:05] VITALS: BP 122/68
--- NOTE | 2018-08-15 07:33 | Electrocardiograph Report ---
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
== END 2018-08-11 12:15 | disposition home or self-care (01) ==
LOC: 2ANU 17:42 → EMEROOARM 17:42 → 2ANU 22:20
PROVIDERS: ADMIT Internal Medicine; ATTEND Internal Medicine

== ENCOUNTER 2019-03-20 12:45 | Inpatient (IN) ==
[2019-03-20] MEDS ORDERED: CeFAZolin Syr 2,000MG/20 ML 2,000 MG/20 ML SYRINGE IVPB ONE (13:31)
[2019-03-20] MEDS ORDERED: Acetaminophen IV 1,000 MG/100 ML INFUS..BTL IVPB ONE (13:38)
[2019-03-20] MEDS ORDERED: Ringers Solution, Lactated 1,000 ML IVC SCH ×3 (13:45→18:03)
[2019-03-20] MEDS ORDERED: Albuterol 2.5 MG/3 ML NEBULIZER IH ONE (13:46)
[2019-03-20] MEDS ORDERED: Ondansetron 4 MG/2 ML VIAL IVP ONE (13:58)
[2019-03-20] MEDS ORDERED: *HR* Meperidine 25 MG/ML SYRINGE IVP PRN (13:58)
[2019-03-20] MEDS ORDERED: *HR* HYDROmorphone (PF) 1 MG/ML SYRINGE IVP PRN (13:58)
[2019-03-20] MEDS ORDERED: *HR* OxyCODONE Immed Rel 5 MG TABLET PO PRN ×2 (13:58→18:03)
[2019-03-20] MEDS ORDERED: *HR* Promethazine 25 MG/ML VIAL IVP PRN (13:58)
[2019-03-20] MEDS ORDERED: ROPIVACAINE/PF/NS 0.25% 1 EACH SYRINGE INTRAART ONE (14:39)
[2019-03-20] MEDS ORDERED: Ropivacaine/PF 0.5% 30 ML VIAL ONE (14:39)
[2019-03-20] MEDS ORDERED: *HR* Midazolam HCl 2 MG/2 ML VIAL ONE (14:55)
[2019-03-20] MEDS ORDERED: *HR* FentaNYL (PF) 100 MCG/2 ML VIAL ONE (14:55)
[2019-03-20] MEDS ORDERED: *HR* Succinylcholine 200 MG/10 ML VIAL IVP ONE (14:56)
[2019-03-20] MEDS ORDERED: *HR* Propofol 200 MG/20 ML VIAL IVP ONE (14:56)
[2019-03-20] MEDS ORDERED: *HR* Rocuronium Bromide 50 MG/5 ML VIAL ONE (14:56)
[2019-03-20] MEDS ORDERED: Ethanol\\Acetic Acid\\Na Ace\\Ben 1,000 ML IRRIG.SOLN IR ONE (14:58)
[2019-03-20] MEDS ORDERED: Ondansetron 4 MG/2 ML VIAL ONE (14:59)
[2019-03-20] MEDS ORDERED: Lidocaine -MPF 2% 2 ML VIAL ONE (14:59)
[2019-03-20] MEDS ORDERED: Dexamethasone 4 MG/ML VIAL ONE (14:59)
[2019-03-20] MEDS ORDERED: *HR* PHENYLEPHRINE 1,000 MCG/10 ML SYRINGE IVP ONE (16:06)
[2019-03-20] MEDS ORDERED: *HR* Enoxaparin 30 MG/0.3 ML SYRINGE SQ SCH (18:00)
[2019-03-20] MEDS ORDERED: Temazepam 15 MG CAPSULE PO PRN (18:03)
[2019-03-20] MEDS ORDERED: Sennosides 8.6 MG TABLET PO PRN (18:03)
[2019-03-20] MEDS ORDERED: *HR* OxyCODONE/APAP 5/325 TABLET PO PRN (18:03)
[2019-03-20] MEDS ORDERED: traMADol 50 MG TABLET PO PRN (18:03)
[2019-03-20] MEDS ORDERED: MOM Conc 10 ML UD.LIQ PO PRN (18:03)
[2019-03-20] MEDS ORDERED: Ondansetron 4 MG/2 ML VIAL IVP PRN (18:03)
[2019-03-20] MEDS ORDERED: Naloxone 0.4 MG/ML INJ IVP PRN (18:03)
[2019-03-20] MEDS: Gabapentin 400 MG CAPSULE PO SCH ×2 (19:03→20:48)
[2019-03-20] MEDS: Budesonide/Formoterol 160/4.5 1 PUFF INH IH SCH (19:47)
[2019-03-20] MEDS ORDERED: Ipratropium/Albuterol Neb 3 ML IH PRN (22:21)
[2019-03-21 05:57] LABS: Hematocrit 38.4 % (35.3-44.9); Hemoglobin 12.8 g/dL (11.5-15.4)
[2019-03-21] MEDS ORDERED: *HR* Enoxaparin 30 MG/0.3 ML SYRINGE SQ SCH (06:00)
[2019-03-21 06:19] LABS: BUN/Creatinine Ratio 19 (6-26); Blood Urea Nitrogen 16 mg/dL (8-23); Calcium 8.4 mg/dL (8.6-10.3); Carbon Dioxide 24 mEq/L (23-29); Chloride 102 mEq/L (98-107); Glucose 258 mg/dL (70-105); Osmolality,Calculated 292 (280-300); Potassium 3.5 mEq/L (3.5-5.1); Sodium 136 mEq/L (136-145); eGFR For African Americans > 60 (> 60); eGFR For Non-African Americans > 60 (> 60)
[2019-03-21 06:48] VITALS: BP 107/56
[2019-03-21] MEDS: Budesonide/Formoterol 160/4.5 1 PUFF INH IH SCH (07:14)
[2019-03-21] MEDS ORDERED: FLUoxetine 20 MG CAPSULE PO SCH (09:00)
[2019-03-21] MEDS ORDERED: hydroCHLOROthiazide 25 MG TABLET PO SCH (09:00)
== END 2019-03-21 10:10 | disposition home health service (06) | DRG 483 ==
LOC: SAMDAY 12:45 → 3NENU 17:59
PROVIDERS: ADMIT Orthopaedic Surgery; ATTEND Orthopaedic Surgery

== ENCOUNTER 2019-11-19 12:01 | Inpatient (IN) ==
[~2019-11-19 12:01] MED LIST: Total Joint Mixture (50 ml) INTRAART ONE
[2019-11-19] MEDS ORDERED: Ringers Solution, Lactated 1,000 ML IVC SCH ×2 (12:30→16:34)
[2019-11-19] MEDS ORDERED: Lidocaine -MPF 2% 2 ML VIAL ONE ×2 (12:57→14:26)
[2019-11-19] MEDS ORDERED: *HR* FentaNYL (PF) 100 MCG/2 ML VIAL ONE (12:57)
[2019-11-19] MEDS ORDERED: *HR* Propofol 200 MG/20 ML VIAL IVP ONE (12:57)
[2019-11-19] MEDS ORDERED: *HR* OxyCODONE Immed Rel 5 MG TABLET PO PRN ×2 (13:20→16:34)
[2019-11-19] MEDS ORDERED: Ondansetron 4 MG/2 ML VIAL IVP ONE (13:20)
[2019-11-19] MEDS ORDERED: *HR* OxyCODONE ER (12 HR) 10 MG TABLET PO ONE (13:29)
[2019-11-19] MEDS ORDERED: *HR* Midazolam HCl 2 MG/2 ML VIAL ONE (13:56)
[2019-11-19] MEDS ORDERED: Ropivacaine/PF 0.5% 30 ML VIAL ONE (13:56)
[2019-11-19] MEDS ORDERED: Ethanol\\Acetic Acid\\Na Ace\\Ben 1,000 ML IRRIG.SOLN IR ONE (14:15)
[2019-11-19] MEDS ORDERED: *HR* PHENYLEPHRINE 1,000 MCG/10 ML SYRINGE IVP ONE ×2 (14:32→15:00)
[2019-11-19] MEDS ORDERED: Dexamethasone 4 MG/ML VIAL ONE (14:34)
[2019-11-19] MEDS ORDERED: Ondansetron 4 MG/2 ML VIAL ONE (14:34)
[2019-11-19] MEDS ORDERED: Vancomycin 1,000 MG VIAL ONE (14:37)
[2019-11-19] MEDS: *HR* HYDROmorphone PF 0.5 MG/0.5 ML SYRINGE IVP PRN ×2 (15:29→15:37)
[2019-11-19] MEDS ORDERED: MOM Conc 10 ML UD.LIQ PO PRN (16:34)
[2019-11-19] MEDS ORDERED: Sennosides 8.6 MG TABLET PO PRN (16:34)
[2019-11-19] MEDS ORDERED: *HR* Dextrose 50 % in Water (Vial) 50 ML VIAL IVP PRN (16:34)
[2019-11-19] MEDS ORDERED: Gabapentin 400 MG CAPSULE PO PRN (16:34)
[2019-11-19] MEDS ORDERED: Dextrose Gel 15 GM/37.5 ML TUBE PO PRN ×2 (16:34)
[2019-11-19] MEDS ORDERED: Ondansetron 4 MG/2 ML VIAL IVP PRN (16:34)
[2019-11-19] MEDS ORDERED: D5% in Water 1,000 ML IVC PRN (16:34)
[2019-11-19] MEDS ORDERED: Naloxone 0.4 MG/ML INJ IVP PRN (16:34)
[2019-11-19] MEDS ORDERED: *HR* Promethazine 25 MG/ML VIAL IVP PRN (16:34)
[2019-11-19] MEDS: Insulin LISPRO 300 UNITS/3 ML VIAL SQ SCH (18:22)
[2019-11-19] MEDS: Ascorbic Acid 500 MG TABLET PO SCH (18:23)
[2019-11-19 19:10] LABS: BUN/Creatinine Ratio 21 (6-26); Blood Urea Nitrogen 18 mg/dL (8-23); eGFR For African Americans > 60 (> 60); eGFR For Non-African Americans > 60 (> 60)
[2019-11-19] MEDS ORDERED: traZODone 50 MG TABLET PO SCH (21:00)
[2019-11-19] MEDS ORDERED: Insulin LISPRO 300 UNITS/3 ML VIAL SQ SCH (21:00)
[2019-11-19] MEDS: Budesonide/Formoterol 160/4.5 1 PUFF INH IH SCH (21:50)
[2019-11-20] MEDS: HYDROcodone BIT/Homatropine 5 MG TABLET PO PRN ×2 (00:20→05:56)
[2019-11-20] MEDS: Vancomycin 1,250 MG/262.5 ML IV.SOLN IVPB SCH ×2 (00:21→13:29)
[2019-11-20 03:58] LABS: Immature Granulocytes % 0.4 % (0-4); Mean Corpuscular Volume 92.2 fL (83.0-100.0); Mean Platelet Volume 14.5 fL (9.4-12.4)
[2019-11-20 04:00] LABS: Basophils % 0.3 %; Hematocrit 34.2 % (35.3-44.9); Hemoglobin 10.6 g/dL (11.5-15.4); Lymphocytes # 0.6 K/mcL (0.6-4.6); Lymphocytes % 4.8 %; Mean Corpuscular Hemoglobin 28.6 pg (28.0-33.3); Monocytes # 0.3 K/mcL (0.0-1.3); Neutrophils # 10.4 K/mcL (1.6-8.9); Platelet Count 151 K/mcL (140-400); Red Blood Count 3.71 M/mcL (3.82-4.97); Red Cell Distribution Width 15.9 % (11.5-14.5); Segmented Neutrophils % 91.5 %; White Blood Count 11.4 K/mcL (4.3-11.1)
[2019-11-20 04:15] LABS: BUN/Creatinine Ratio 18 (6-26); Blood Urea Nitrogen 15 mg/dL (8-23); Calcium 8.3 mg/dL (8.6-10.3); Carbon Dioxide 27 mEq/L (23-29); Chloride 104 mEq/L (98-107); Glucose 191 mg/dL (70-105); Osmolality,Calculated 288 (280-300); Sodium 136 mEq/L (136-145); eGFR For African Americans > 60 (> 60); eGFR For Non-African Americans > 60 (> 60)
[2019-11-20 04:27] LABS: Platelet Estimate Normal (Normal)
[2019-11-20] MEDS: Budesonide/Formoterol 160/4.5 1 PUFF INH IH SCH (07:43)
[2019-11-20] MEDS ORDERED: Multivit/Ca/Min/Fe/FA 1 TAB TABLET PO SCH (09:00)
[2019-11-20] MEDS ORDERED: lisinopriL 5 MG TABLET PO SCH (09:00)
[2019-11-20] MEDS ORDERED: FLUoxetine 20 MG CAPSULE PO SCH (09:00)
[2019-11-20] MEDS: Ascorbic Acid 500 MG TABLET PO SCH ×2 (09:06→17:42)
[2019-11-20] MEDS: Insulin LISPRO 300 UNITS/3 ML VIAL SQ SCH ×2 (09:13→16:33)
[2019-11-20 15:56] VITALS: BP 109/64
== END 2019-11-20 18:00 | disposition home health service (06) | DRG 464 ==
LOC: SAMDAY 12:01 → 3NENU 16:59
PROVIDERS: ADMIT Orthopaedic Surgery; ATTEND Orthopaedic Surgery

== ENCOUNTER 2019-12-31 19:25 | Observation (INO) ==
[2019-12-31] MEDS ORDERED: *HR* HYDROcodone/Acet 5/325 mg TABLET PO ONE (20:14)
[2019-12-31 20:31] LABS: Basophils % 1.1 %; Mean Corpuscular Hemoglobin 29.3 pg (28.0-33.3); Red Cell Distribution Width 13.7 % (11.5-14.5)
[2019-12-31 20:33] LABS: Basophils # 0.1 K/mcL (0.0-0.2); Eosinophils # 0.2 K/mcL (0.0-0.6); Eosinophils % 2.8 %; Hematocrit 40.1 % (35.3-44.9); Immature Granulocytes % 0.2 % (0-4); Immature Platelets 18.7 % (1.1-6.1); Lymphocytes % 37.6 %; Mean Corpuscular HGB Conc 32.4 g/dL (31.6-35.5); Mean Corpuscular Volume 90.5 fL (83.0-100.0); Mean Platelet Volume 13.4 fL (9.4-12.4); Monocytes # 0.4 K/mcL (0.0-1.3); Monocytes % 8.2 %; Neutrophils # 2.7 K/mcL (1.6-8.9); Platelet Count 172 K/mcL (140-400); Red Blood Count 4.43 M/mcL (3.82-4.97); Segmented Neutrophils % 50.1 %; White Blood Count 5.3 K/mcL (4.3-11.1)
[2019-12-31 21:10] LABS: BUN/Creatinine Ratio 17 (6-26); Blood Urea Nitrogen 12 mg/dL (8-23); C-Reactive Protein 7 mg/L (Less than 10); Calcium 9.6 mg/dL (8.6-10.3); Carbon Dioxide 30 mEq/L (23-29); Chloride 100 mEq/L (98-107); Glucose 107 mg/dL (70-105); Osmolality,Calculated 284 (280-300); Potassium 3.3 mEq/L (3.5-5.1); Sodium 137 mEq/L (136-145); eGFR For African Americans > 60 (> 60); eGFR For Non-African Americans > 60 (> 60)
[2019-12-31] MEDS ORDERED: *HR* HYDROmorphone (PF) 1 MG/ML SYRINGE IVP ONE (23:30)
[2020-01-01] MEDS ORDERED: Isovue-370 500 ML BOTTLE IVP ONE (00:01)
[2020-01-01] MEDS ORDERED: Ondansetron 4 MG/2 ML VIAL IVP PRN (00:36)
[2020-01-01] MEDS ORDERED: Naloxone 0.4 MG/ML INJ IVP PRN (00:36)
[2020-01-01] MEDS ORDERED: Acetaminophen 325 MG TABLET PO PRN (00:36)
[2020-01-01] MEDS: cefTRIAXone 1,000 MG in Water for inj. (sterile) 10 ML IVP SCH ×2 (00:41→09:26)
[2020-01-01] MEDS ORDERED: 0.9 % Sodium Chloride 1,000 ML IVC SCH (00:45)
[2020-01-01] MEDS ORDERED: *HR* OxyCODONE Immed Rel 5 MG TABLET PO PRN (02:01)
[2020-01-01] MEDS ORDERED: *HR* OxyCODONE/APAP 10/325 TABLET PO PRN (04:23)
[2020-01-01] MEDS ORDERED: Ondansetron ODT 4 MG TAB.RAPDIS PO PRN (04:23)
[2020-01-01 05:34] LABS: Hemoglobin 12.2 g/dL (11.5-15.4)
[2020-01-01 05:36] LABS: Hematocrit 39.1 % (35.3-44.9); INR 1.1; Immature Platelets 18.9 % (1.1-6.1); Mean Corpuscular HGB Conc 31.2 g/dL (31.6-35.5); Mean Corpuscular Volume 92.9 fL (83.0-100.0); Mean Platelet Volume 13.4 fL (9.4-12.4); Prothrombin Time 12.5 Seconds (9.4-12.1); Red Blood Count 4.21 M/mcL (3.82-4.97); Red Cell Distribution Width 13.7 % (11.5-14.5); White Blood Count 5.1 K/mcL (4.3-11.1)
[2020-01-01 05:39] LABS: Activated Partial Thrombo Time 37.1 Seconds (26.0-36.0)
[2020-01-01 05:48] LABS: BUN/Creatinine Ratio 17 (6-26); Blood Urea Nitrogen 10 mg/dL (8-23); Calcium 8.9 mg/dL (8.6-10.3); Carbon Dioxide 28 mEq/L (23-29); Chloride 103 mEq/L (98-107); Glucose 93 mg/dL (70-105); Osmolality,Calculated 287 (280-300); Potassium 3.2 mEq/L (3.5-5.1); Sodium 139 mEq/L (136-145); eGFR For African Americans > 60 (> 60); eGFR For Non-African Americans > 60 (> 60)
[2020-01-01] MEDS ORDERED: *HR* Heparin 5,000 UNIT/ML VIAL SQ SCH (06:00)
[2020-01-01 07:28] VITALS: BP 144/78
[2020-01-01] MEDS ORDERED: hydroCHLOROthiazide 25 MG TABLET PO SCH (09:00)
[2020-01-01] MEDS ORDERED: lisinopriL 5 MG TABLET PO SCH (09:00)
[2020-01-01] MEDS ORDERED: FLUoxetine 20 MG CAPSULE PO SCH (09:00)
[2020-01-01] MEDS: Gabapentin 400 MG CAPSULE PO SCH ×2 (09:28→11:57)
[2020-01-01] MEDS ORDERED: Budesonide/Formoterol 160/4.5 1 PUFF INH IH SCH (10:00)
== END 2020-01-01 13:41 | disposition home or self-care (01) ==
LOC: 3NENU 19:25 → EMEROOARM 19:25 → SUATTDRO 01-01 00:29 → 3NENU 01-01 01:03
PROVIDERS: ADMIT Internal Medicine; ATTEND Internal Medicine